=== PATIENT | male | born 1980 | race Caucasian/White ===

== ENCOUNTER → 2020-01-11 | Outpatient (CLI) | payer OTHER ==
--- NOTE | 2020-01-12 07:10 | US ---
EXAMINATION TYPE: US abdomen limited DATE OF EXAM: 01/11/2020 COMPARISON: NONE CLINICAL HISTORY: L08.81 Local infections of skin and subcutaneous. Patient complains of a bloody discharge that come out of umbilicus off and on for over a year. Patien t has tried antibiotics. Scanning was performed directly over umbilicus. There appears to be a tract like opening extending in to abdomen. Unsure etiology. Valsalva maneuver was utilized, no definite hernia seen. IMPRESSION: Tract-like opening over the umbilicus without distinct hernia. Correlate clinically and consider CT correlation if felt to be indicated.
== END | disposition home or self-care (01) ==
LOC: RADUSWWP 16:23
PROVIDERS: ATTEND Family Medicine
DX: L08.89 Other specified local infections of the skin and subcutaneous tissue (principal)
CPT/HCPCS: 76705

== ENCOUNTER → 2020-02-08 | Outpatient (CLI) | payer OTHER ==
--- NOTE | 2020-02-09 07:29 | CT ---
EXAMINATION TYPE: CT abdomen pelvis w con DATE OF EXAM: 02/08/2020 COMPARISON: Ultrasound abdomen Limited January 11, 2020 HISTORY: umbilical pain and discharge CT DLP: 4798.4 mGycm, Automated Exposure Control for Dose Reduction was Utilized. CONTRAST: CT scan of the abdomen and pelvis is performed with oral and with IV Contrast, patient injected with 100 mL of Isovue 300. FINDINGS: Exam slightly suboptimal secondary to patient's large body habitus. LUNG BASES: No significant abnormality is appreciated. LIVER/GB: Liver is heterogeneously hypodense consistent with diffuse fatty infiltration. PANCREAS: No significant abnormality is seen. SPLEEN: No significant abnormality is seen. ADRENALS: No significant abnormality is seen. KIDNEYS: No renal stones or hydronephrosis is seen bilaterally. BOWEL: Oral contrast reaches level of the terminal ileum. No suspicious small or large bowel dilatati on. Occasional scattered colonic diverticula. No CT evidence for acute diverticulitis. PROSTATE/SEMINAL VESICLES: No gross abnormality seen. LYMPH NODES: No greater than 1cm abdominal or pelvic lymph nodes are appreciated. OSSEOUS STRUCTURES: Sclerotic areas anterior superior L2 and L3 vertebra could reflect endplate scler osis . Spine is straightened. [id number] axial joint space loss in both hips. OTHER: Small fat-containing umbilical hernia. No suspicious diverticulum or tract particularly extend ing from the bladder. No concerning solid or cystic mass or fluid collection at this level. Prominent collateral vessel right anterior groin region IMPRESSION: No obvious mass or fluid collection. No sinus tract visualized.
== END | disposition home or self-care (01) ==
LOC: RADCTMAIN 15:25
PROVIDERS: ATTEND Family Medicine
DX: R19.8 Other specified symptoms and signs involving the digestive system and abdomen (principal); L08.82 Omphalitis not of newborn
CPT/HCPCS: 74177; Q9967

== ENCOUNTER → 2021-08-03 | Outpatient (CLI) | payer OTHER ==
--- NOTE | 2021-08-03 01:51 | CT ---
EXAMINATION TYPE: CT brain wo con DATE OF EXAM: 08/03/2021 COMPARISON: None HISTORY: fall CT DLP: 1157.4 mGycm Automated exposure control for dose reduction was used. Ventricles and sulci appear normal. There is no mass effect or midline shift. There is no sign of int racranial hemorrhage. Calvarium is intact. Skull base is intact. IMPRESSION: Negative unenhanced head CT scan.
== END | disposition home or self-care (01) ==
LOC: RADCTMAIN 00:32
PROVIDERS: ATTEND Emergency Medicine
DX: Z08 Encounter for follow-up examination after completed treatment for malignant neoplasm (principal); W18.30XA Fall on same level, unspecified, initial encounter
CPT/HCPCS: 70450